=== PATIENT | female | born 1995 | race Caucasian/White ===

== ENCOUNTER 2024-09-10 18:04 | Day surgery (SDC) | payer BC ==
[2024-09-10] MEDS ORDERED: Glucagon 1 MG/ML KIT ONE (18:39)
[2024-09-10] MEDS ORDERED: Lidocaine 1% PF 5 ML VIAL ONE (20:45)
[2024-09-10] MEDS ORDERED: SUCCINYLCHOLINE/SOD CL,ISO/PF 200 MG/10 ML SYRINGE FS ONE (20:45)
[2024-09-10] MEDS ORDERED: PROPOFOL 20 ML ONE (20:45)
== END 2024-09-10 22:15 | disposition home or self-care (01) ==
LOC: ERS 18:04 → SDC 20:52
PROVIDERS: ATTEND Internal Medicine
PROC: 0DJ08ZZ Inspection of Upper Intestinal Tract, Via Natural or Artificial Opening Endoscopic (ICD-10-PCS; principal; 2024-09-10)
DX: O21.0 Mild hyperemesis gravidarum (principal); O99.611 Diseases of the digestive system complicating pregnancy, first trimester; K22.89 Other specified disease of esophagus; Z3A.14 14 weeks gestation of pregnancy; Z79.899 Other long term (current) drug therapy
CPT/HCPCS: 96374; J1611; J2704